=== PATIENT | male | born 1995 | race Caucasian/White ===

== ENCOUNTER 2017-04-15 09:09 | Day surgery (SDC) | payer OTHER ==
[2017-04-15] MEDS ORDERED: FENTAnyl 50 MCG/ML VIAL (10:26)
[2017-04-15] MEDS ORDERED: MIDAZOLAM 1 MG/ML 2 ML INJ (10:26)
[2017-04-15] MEDS ORDERED: IODIXANOL LOCM 100 ML BTL (10:26)
[2017-04-15] MEDS ORDERED: IODIXANOL LOCM 50 ML BTL (10:39)
[2017-04-15] MEDS ORDERED: LIDOCAINE 1% (MDV) 20 ML INJ (10:39)
[2017-04-15] MEDS ORDERED: SOD CHLORIDE 0.9% 500 ML (10:39)
== END 2017-04-15 12:30 | disposition home or self-care (01) ==
LOC: SDS 09:09
DX: Z46.89 Encounter for fitting and adjustment of other specified devices (principal); G82.20 Paraplegia, unspecified
CPT/HCPCS: 37193; 75825